=== PATIENT | male | born 1950 | race Caucasian/White ===

== ENCOUNTER 2019-12-19 17:56 | Emergency (ER) | payer OTHER, SELFPAY ==
--- NOTE | ~2019-12-19 | XR_ITS ---
XR hand LT min 3V 12/19/2019 18:30 Indication: Hand pain after injury Procedure: 3 views left hand Comparison: No prior studies for comparison. 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 No acute fracture or traumatic malalig nment. No focal soft tissue abnormality. No radiopaque foreign bodies. There is corticated ossific de nsity dorsal to the carpal bones on the lateral view, likely an old triquetral fracture. Impression: 1: No acute fracture. Reviewed, dictated and finalized at location A. Impression: 1: No acute fracture.
[2019-12-19 18:05] VITALS: BP 173/84; PULSE 66; RESP 20; TEMP 36.9; O2SAT 97
--- NOTE | 2019-12-19 18:36 | ED.UPPEXIN ---
HPI - Extremity Injury (Upper) General Chief Complaint: Extremity Injury, Upper Stated Complaint: injury to top of left hand and cut on thumb Time Seen by Provider: 12/19/19 18:32 Source: patient and RN notes reviewed Mode of arrival: ambulatory Limitations: no limitations History of Present Illness HPI narrative: 69-year-old male presents with concern for left hand injury. Reports this morning he had a board fall on his left hand causing a superficial laceration to the thumb, swelling, bruising to the dorsal aspect of the hand. He reports tenderness to the hand. Denies any limited range of motion, weakness, numbness. MD complaint: injury to: left and hand Related Data Home Medications Medication Instructions Recorded Confirmed amlodipine 5 mg PO DAILY 12/19/19 12/19/19 atorvastatin 20 mg PO DAILY 12/19/19 12/19/19 escitalopram oxalate 20 mg PO DAILY 12/19/19 12/19/19 Allergies Allergy/AdvReac Type Severity Reaction Status Date / Time No Known Allergies Allergy Verified 12/19/19 18:04 Review of Systems Review of Systems: Narrative: CONSTITUTIONAL: Denies malaise, chills, sweats, or fever. CARDIOVASCULAR: Denies chest pain, palpitations RESPIRATORY: Denies cough or dyspnea. SKIN: Laceration to the left thumb MUSCULOSKELETAL: Reports left hand pain, bruising, swelling NEUROLOGIC: Denies numbness, weaknessn. All systems reviewed & are unremarkable except as noted in HPI and below PMFSH Comments At time of signature, agree with nursing past medical, surgical, social and family history. There is no relevant family history pertinent to the presenting complaint Exam Narrative: Exam Narrative: GENERAL: Well-appearing, well-nourished, and in no acute distress. HEAD: Normocephalic, atraumatic. EYES: PERRLA, conjunctivae clear NECK: Supple. CHEST: Speaks in full sentences. No respiratory distress. HEART: Regular rate and rhythm. Normal and equal peripheral pulses. EXTREMITIES: Left hand and digits of hand have normal strength and sensation. 5/5 strength with digit flexion, extension. Range of motion normal. No clubbing, cyanosis, or edema noted. No tenderness. Normal digital cascade with flexion of fingers, median, ulnar and radial nerve intact. Normal sensation of each side of finger. Can perform 'okay' sign, 'cross over finger test of index and middle fingers' and 'thumbs up' sign. No scissoring. Normal thumb opposition. Good capillary refill and radial pulse. Distal capillary refill <3 seconds. SKIN: Warm, dry, no rash. 1 cm superficial linear laceration noted to the lateral aspect of the first digit of the left hand no surrounding induration, erythema, edema NEURO: Alert and oriented x3. PSYCH: Normal mood and affect Course Course Emergency Course: 3 Steri-Strips applied to superficial laceration to the left first digit, well approximated. Patient is aware of diagnosis, understands and agrees to treatment plan. Anticipatory guidance given. Patient agrees to follow-up as directed and is aware of reasons to seek care at the emergency department. Portions of this record may have been created with voice recognition software Vital Signs Vital signs: Vital Signs Temperature 98.5 F 12/19/19 18:05 Pulse Rate 66 12/19/19 18:05 Respiratory Rate 20 12/19/19 18:05 Blood Pressure 173/84 H 12/19/19 18:05 Pulse Oximetry 97 12/19/19 18:05 Temperature 98.5 F 12/19/19 18:05 Pulse Rate 66 12/19/19 18:05 Respiratory Rate 20 12/19/19 18:05 Blood Pressure 173/84 H 12/19/19 18:05 Pulse Oximetry 97 12/19/19 18:05 Reviewed patient has history of hypertension MDM - Extremity Injury (Upper) MDM Narrative Medical decision making narrative: Patients injury and pain is consistent with musculoskeletal etiology. No signs of neurological or vascular compromise on exam. Compartments and tissues are soft without signs of compartment syndrome. Pain is felt appropriate for further evaluation on an outpatient ba
== END 2019-12-19 18:47 | disposition home or self-care (01) ==
PROVIDERS: Emergency Provider Nurse Practitioner; PCP Internal Medicine
DX: S61.012A Laceration without foreign body of left thumb without damage to nail, initial encounter (principal); E78.00 Pure hypercholesterolemia, unspecified; I10 Essential (primary) hypertension; F41.9 Anxiety disorder, unspecified; W20.8XXA Other cause of strike by thrown, projected or falling object, initial encounter
CPT/HCPCS: 73130; 99213; G0463

== ENCOUNTER 2021-07-05 18:32 | Emergency (ER) | payer OTHER, SELFPAY ==
--- NOTE | ~2021-07-05 | XR_ITS ---
EXAMINATION: XR tibia fibula LT 2V DATE: 07/05/2021 19:22 INDICATION: Anterior left lower leg pain post injury TECHNIQUE: Anteroposterior and lateral views of the left tibia and fibula were obtained. COMPARISON: None. FINDINGS: Alignment is normal. No fracture. Joint spaces are normal. Small heterotopic ossicle near the tip of the lateral malleolus likely sequela of chronic lateral ankle sprain. Diffuse soft tissue swelling wi th subcutaneous edema about the left lower leg. IMPRESSION: 1. Diffuse soft tissue swelling with subcutaneous edema throughout the left lower leg with no acute o sseous abnormality. Reviewed, dictated and finalized at location A. NISTRATION MANAGER IMPRESSION: 1. Diffuse soft tissue swelling with subcutaneous edema throughout the left low er leg with no acute osseous abnormality.
[2021-07-05 18:45] VITALS: BP 152/80; PULSE 73; RESP 20; TEMP 36.9; O2SAT 100
--- NOTE | 2021-07-05 18:46 | ED.LOWEXIN ---
HPI - Extremity Injury (Lower) General Chief Complaint: Extremity Injury, Lower Stated Complaint: Fall Injury/ Left Leg Time Seen by Provider: 07/05/21 19:17 Source: patient and RN notes reviewed Mode of arrival: ambulatory Limitations: no limitations History of Present Illness HPI Narrative: 70-year-old male presents with concern for left leg pain, redness, swelling. Reports 1 week ago he was working on a construction project when his leg slid between 2 floor devices causing laceration to the anterior leg. Reports since then he has had pain with walking and the leg has since become swollen and red and more painful. He denies intervention. MD complaint: leg injury Related Data Home Medications Medication Instructions Recorded Confirmed atorvastatin 20 mg PO DAILY 12/19/19 07/05/21 escitalopram oxalate 20 mg PO DAILY 12/19/19 07/05/21 amlodipine 10 mg PO DAILY 07/05/21 07/05/21 Allergies Allergy/AdvReac Type Severity Reaction Status Date / Time No Known Allergies Allergy Verified 07/05/21 19:08 Review of Systems Review of Systems: CONSTITUTIONAL: Denies malaise, chills, sweats, or fever. CARDIOVASCULAR: Denies chest pain, palpitations, or edema. RESPIRATORY: Denies cough or dyspnea. SKIN: Reports scab to the anterior left lower leg with redness, swelling, tenderness MUSCULOSKELETAL: Reports left leg pain NEUROLOGIC: Denies numbness, weakness All systems reviewed & are unremarkable except as noted in HPI and below PMFSH Comments At time of signature, agree with nursing past medical, surgical, social and family history. There is no relevant family history pertinent to the presenting complaint Exam Narrative: GENERAL: Well-appearing, well-nourished, and in no acute distress. HEAD: Normocephalic, atraumatic. EYES: PERRLA, sclera clear ENT: Mucous membranes moist. NECK: Supple. CHEST: No respiratory distress. Speaks in full sentences. HEART: Regular rate and rhythm. No murmur heard. Normal peripheral pulses. EXTREMITIES: Left lower extremity has grossly normal range of motion, normal strength and sensation. SKIN: Warm, dry. Anterior left lower leg with a large area of induration, erythema, edema distal to a healing scab approximately 20 cm long. NEURO: Alert and oriented x3 PSYCH: Normal mood and affect Course Course Emergency Course: Patient is aware of diagnosis, understands and agrees to treatment plan. Anticipatory guidance given. Patient agrees to follow-up as directed and is aware of reasons to seek care at the emergency department. Portions of this record may have been created with voice recognition software Vital Signs Vital signs: Reviewed. MDM - Extremity Injury (Lower) MDM Narrative Medical decision making narrative: Exam findings and imaging show no acute concerns or changes; patient is non-toxic appearing and is in no distress. Patient is appropriate for outpatient treatment and follow-up. Critical Care Time Critical Care Time Critical Care Time: No Discharge Plan Discharge Clinical Impression: Cellulitis Qualifiers: Site of cellulitis: extremity Site of cellulitis of extremity: lower extremity Laterality: left Qualified Code(s): L03.116 - Cellulitis of left lower limb Patient Disposition: Home, Self-Care Condition: Stable Instructions: Antibiotic Form, Cellulitis (ED) Additional Instructions: Please follow up with your Primary Care Doctor within 48-72 hours - call for an appointment. Rest and elevate affected area; apply moist heat 3-4 times daily for 10-15 minutes. Take Motrin 600mg every 8 hours with food for pain. Please take Antibiotics as directed. If you experience any worsening redness, swelling, streaking (red lines), fever or chills please go to the ER Prescriptions: New cephalexin 500 mg capsule 500 mg PO QID 10 Days Qty: 40 RF: 0 No Action atorvastatin 20 mg Tablet 20 mg PO DAILY RF: 0 escitalopram oxalate 20 mg Tablet 20 mg PO DAILY RF: 0 a
== END 2021-07-05 19:40 | disposition home or self-care (01) ==
PROVIDERS: Emergency Provider Nurse Practitioner
DX: L03.116 Cellulitis of left lower limb (principal); E78.00 Pure hypercholesterolemia, unspecified; I10 Essential (primary) hypertension; F41.9 Anxiety disorder, unspecified
CPT/HCPCS: 73590; 99213; G0463

== ENCOUNTER 2024-02-25 09:01 | Emergency (ER) | payer OTHER, SELFPAY ==
[2024-02-25 09:12] VITALS: BP 151/70; PULSE 62; RESP 18; TEMP 36.3; O2SAT 97
--- NOTE | 2024-02-25 09:42 | ED.SKABFB ---
HPI - Skin/Abscess/Foreign Bdy General Chief complaint: Skin/Abscess/Foreign Body Stated complaint: Tick Bite Time Seen by Provider: 02/25/24 09:30 Source: patient, family, RN notes reviewed and old records reviewed Mode of arrival: ambulatory Limitations: no limitations History of Present Illness HPI narrative: 73 year old male presents to [facility] care with complaints of removing a tick from his left upper back near axilla on Monday by , was there for 2 days prior thought was skin tag initially. Patient has 4cm by 9cm red area around center 0.5cm white raised crusty lesion area where tick removed. Patient reports no body aches no fevers or joint pains.Patiebt has been applying triple antibiotic ointment to area where tick remove. MD complaint: other (tick bite) Onset (ago): day(s) (5) Location: back (left back near axilla) Severity: mild Quality: aching Treatments prior to arrival: other (removed tick from left back near axilla, triple antibiotic ointment to site) Related Data Home Medications Medication Instructions Recorded Confirmed atorvastatin 20 mg tablet 20 mg PO DAILY 12/19/19 02/25/24 escitalopram oxalate 20 mg tablet 20 mg PO DAILY 12/19/19 02/25/24 amlodipine 10 mg tablet 10 mg PO DAILY 07/05/21 02/25/24 losartan 25 mg tablet 25 mg PO DAILY 02/25/24 02/25/24 tamsulosin 0.4 mg capsule 0.4 mg PO DAILY 02/25/24 02/25/24 Allergies Allergy/AdvReac Type Severity Reaction Status Date / Time No Known Allergies Allergy Verified 02/25/24 09:27 Review of Systems Review of Systems: CONSTITUTIONAL: Denies fever, chills, or sweats. CARDIOVASCULAR: Denies chest pain, palpitations, or edema. RESPIRATORY: Denies cough or dyspnea. GASTROINTESTINAL: Denies abdominal pain, nausea, vomiting SKIN: Reports redness and swelling around center crusty lesion 0.5cm diameter where a tick was removed 5 days ago with redness starting the next day and has progressively increased in size MUSCULOSKELETAL: Denies myalgia. NEUROLOGIC: Denies headache, numbness All systems reviewed & are unremarkable except as noted in HPI and below PMFSH Past Medical History Medical History (Updated 02/26/24 @ 17:27 by Concha Nj NP) Anxiety BPH (benign prostatic hyperplasia) Hard of hearing Hyperlipidemia Hypertension Surgical History Surgical History (Updated 02/26/24 @ 17:23 by Concha Nj NP) History of cholecystectomy Social History Social History (Updated 02/26/24 @ 17:23 by Concha Nj NP) Smoking status: Never smoker Alcohol intake: unknown Substance use type: does not use Living arrangements: with family Gender identity (if verbalized by the patient): Male Comments At time of signature, agree with nursing past medical, surgical, social and family history. There is no relevant family history pertinent to the presenting complaint Exam Narrative: GENERAL: Well-appearing, well-nourished, and in no acute distress. HEAD: Normocephalic, atraumatic. EYES: PERRLA and EOMI. ENT: Nares clear, no rhinorrhea or epistaxis. Mucous membranes moist.TM;s normal, throat pink with no swelling NECK: Supple.no lymphadenopathy CHEST: Clear to auscultation. No respiratory distress.SAO2 97% on room air HEART: Regular rate and rhythm. No murmur heard. Normal peripheral pulses. ABDOMEN: Soft, nontender, nondistended, normal active bowel sounds. EXTREMITIES: Normal range of motion. No edema. SKIN: Warm, dry. Erythema, induration, tenderness, minimal warmth with 4cm X 9Cm red area around 0.5 whitish crusty lesion where tick removed 5 days ago. . No vesicles or any fluctuation of tissue. NEURO: No focal deficits. Alert and oriented x3. Course Course Emergency Course: Patient is aware of diagnosis, understands and agrees to treatment plan. Anticipatory guidance given. Patient agrees to follow-up as directed and is aware of reasons to seek care at the emergency department. Portions of this record may have be
== END 2024-02-25 10:03 | disposition home or self-care (01) ==
PROVIDERS: Emergency Provider Registered Nurse; PCP Hospitalist
DX: S20.462A Insect bite (nonvenomous) of left back wall of thorax, initial encounter (principal); L03.312 Cellulitis of back [any part except buttock and flank]; W57.XXXA Bitten or stung by nonvenomous insect and other nonvenomous arthropods, initial encounter; N40.0 Benign prostatic hyperplasia without lower urinary tract symptoms; E78.5 Hyperlipidemia, unspecified; I10 Essential (primary) hypertension; F41.9 Anxiety disorder, unspecified
CPT/HCPCS: 99213; G0463